=== PATIENT | male | born 1980 | race Caucasian/White ===

== ENCOUNTER 2017-11-07 01:24 | Emergency (ER) | payer OTHER ==
[~2017-11-07] VITALS: Ht 175.3 cm; Wt 74.8 kg
--- NOTE | 2017-11-07 01:50 | ED CARDIAC/CP/PALPITATIONS ---
History of Present Illness General Chief Complaint: Chest Pain Stated Complaint: PT C/C " THINK IM HAVING A HEART ATTACK" Source: patient Exam Limitations: no limitations Vital Signs & Intake/Output Vital Signs & Intake/Output Vital Signs Date Time Temp Pulse Resp B/P B/P Pulse O2 O2 Flow FiO2 Mean Ox Delivery Rate 11/07 0149 98 Room Air 11/07 0140 98.4 98 22 146/80 98 Room Air Allergies Coded Allergies: sulfamethoxazole (From ) (UNKNOWN 11/07/17) trimethoprim (From ) (UNKNOWN 11/07/17) Triage Note: PT TO ED C/O CHEST PAIN AND LEFT ARM NUMBNESS THAT WOKE HIM FROM SLEEP UST PRIOR TO ARRIVAL. ON ARRIVAL TO ED, PT GOT OUT OF PASSENGER SIDE DOOR PRIOR TO CAR STOPPING. RAN INTO ED WAITING ROOM STATING "I THINK I'M HAVING A HEART ATTACK!" EKG DONE AND SHOWN TO DR ROBLES. NSR HR 98. PT STATES HE OCCASIONALLY WAKES UP WITH LEFT ARM "ASLEEP FROM SLEEPING ON IT" HAD AN ANGRY ORCHRD TO DRINK LAST EVENING. "I WAS HAVING DREAMS" STATES HAS SOME ISSUES WITH ANXIETY "BUT I DON'T TAKE ANYTHING FOR IT" PT TREMULOUS ON ARRIVAL. REASSUARNCE GIVEN, PT LESS SHAKEY. PT DENIES N/V/DIAPHORESIS. EKG SHOWN TO DR ROBLES. Triage Nurses Notes Reviewed? yes Onset: Abrupt Duration: minute(s): Timing: single episode today Quality/Severity: moderate Location: central Radiation: no radiation Activities at Onset: sleep Associated Symptoms: Rest HPI: 37-year-old gentleman in prior good health presents with 30 minute episode of dizziness, sudden anxiety, left arm numbness, facial numbness. He states that he was having a disturbing dream. He awoke out of sleep suddenly and had these symptoms. The symptoms self resolved after approximately 20-30 minutes. He is now feeling well. He noted no significant chest pain, just pressure. He states, "I have a very stressful job. I think it was a panic attack." Past History Travel History Traveled to [place] past 21 day No Medical History Any Pertinent Medical History? see below for history Cardiovascular: hyperlipidemia Psychiatric: anxiety Surgical History Surgical History: none Psychosocial History What is your primary language Lao Tobacco Use: Never used ETOH Use: occasional use Illicit Drug Use: denies illicit drug use Family History Hx Contributory? No Review of Systems Review of Systems Constitutional: Denies: see HPI. Physical Exam Physical Exam Cardiovascular: regular rate/rhythm Comments: Review of Systems - except as otherwise noted in HPI Review of Systems Constitutional:no symptoms. EENTM:no symptoms. Respiratory:no symptoms. Cardiovascular:no symptoms. GI:no symptoms. Genitourinary:no symptoms. Musculoskeletal:no symptoms. Skin:no symptoms. Neurological/Psychological:no symptoms. Hematologic/Endocrine:no symptoms. Immunologic/Allergic:no symptoms. All Other Systems: Reviewed and Negative Physical Exam Physical Exam General Appearance: well developed/nourished, no apparent distress Head: atraumatic, normal appearance Eyes: Bilateral: normal appearance. Ears, Nose, Throat: normal pharynx, normal ENT inspection Neck: normal inspection, supple, full range of motion Respiratory: normal breath sounds, chest non-tender, no respiratory distress, quiet respiration, lungs clear Cardiovascular: regular rate/rhythm Gastrointestinal: normal bowel sounds, soft, non-tender, no organomegaly Back: normal inspection, normal range of motion Extremities: normal inspection, normal capillary refill, normal range of motion, no edema Neurologic/Psych: no motor/sensory deficits, awake, alert, oriented x 3 Skin: intact, normal color, warm/dry Core Measures ACS in differential dx? No CVA/TIA Diagnosis No Sepsis Present: No Sepsis Focused Exam Completed? No Progress Differential Diagnosis: panic vs other. Plan of Care: Orders Procedure Date/time Status TROPONIN LEVEL 11/07 125 Complete D-DIMER 11/07 125 Complete COMPREHENSIVE METABOLIC PANEL 11/07 125 Complete CBC WITHOUT DIFFERENTIAL 11/07 125 Complete EKG 11/07 125 Active Laboratory Tests 11/07/17 0146: Anion Gap 12, Estimated GFR > 60, BUN/Creatinine Ratio 18.3, Glucose 95, Calcium 9.1, Total Bilirubin 0.4, AST 36, ALT 50, Alkaline Phosphatase 59, Troponin I < 0.01, Total Protein 7.3, Albumin 4.5, Globulin 2.8, Albumin/Globulin Ratio 1.6, D-Dimer High Sensitivty < 200, CBC w Diff NO MAN DIFF REQ, RBC 4.64 L, MCV 83.3 , MCH 29.0, MCHC 34.8, RDW 13.3, MPV 7.7, Gran % 46.7, Lymphocytes % 42.0, Monocytes % 7.7, Eosinophils % 3.3, Basophils % 0.3, Absolute Granulocytes 3.4, Absolute Lymphocytes 3.0, Absolute Monocytes 0.6, Absolute Eosinophils 0.2, Absolute Basophils 0 Initial ED EKG: normal axis, normal intervals, normal p-waves, normal QRS complex, normal sinus rhythm Departure Departure Disposition: HOME OR SELF CARE Condition: Stable Clinical Impression Primary Impression: Chest pain Secondary Impressions: Panic attack Referrals: Patient Has No Primary Care Dr Departure Forms: Customer Survey General Discharge Information Comments , 2:56am.. .pt comfortable in ED, benign ekg, otherwise well... safe for discharge... pt referred to cards. Critical Care Note Critical Care Note Critical Care Time: non-applicable
[2017-11-07 01:57] LABS: ABSOLUTE BASOPHIL COUNT 0 /CUMM (0.0-0.2); ABSOLUTE EOSINOPHIL COUNT 0.2 /CUMM (0.0-0.7); ABSOLUTE GRANULOCYTE CT 3.4 /CUMM (1.4-6.5); ABSOLUTE MONOCYTE COUNT 0.6 /CUMM (0.10-0.60); BASOPHIL % 0.3 % (0.0-2.0); EOSINOPHIL % 3.3 % (0-5); GRANULOCYTE % 46.7 % (42.2-75.2); HEMATOCRIT 38.6 % (42-52); MEAN CORPUSCULAR HGB CONC 34.8 G/DL (33.0-37.0); MEAN CORPUSCULAR VOLUME 83.3 FL (80.0-94.0); MEAN PLATELET VOLUME 7.7 FL (7.4-10.4); PLATELET COUNT 235 /CUMM (130-400); RBC DISTRIBUTION WIDTH 13.3 % (11.5-14.5); RED BLOOD CELL CT 4.64 /CUMM (4.70-6.10); WHITE BLOOD CELL COUNT 7.2 /CUMM (4.8-10.8)
[2017-11-07 02:57] VITALS: BP 136/65
== END 2017-11-07 03:00 ==
LOC: ERH 01:24
PROVIDERS: Pediatrics
DX: R07.9 Chest pain, unspecified (principal); F41.0 Panic disorder [episodic paroxysmal anxiety]; R20.0 Anesthesia of skin
CPT/HCPCS: 93005; 93010